=== PATIENT | female | born 1945 | race Caucasian/White ===

== ENCOUNTER 2016-10-13 09:23 | Day surgery (SDC) | payer OTHER ==
[~2016-10-13 09:23] MED LIST: PROPOFOL 200 MG/20 ML AMP IV ONE
[2016-10-13] MEDS ORDERED: ZOLP10TA3 PO (09:56)
[2016-10-13] MEDS ORDERED: BENA20TA PO (09:56)
[2016-10-13] MEDS ORDERED: PRAV20TA2 PO (09:56)
[2016-10-13] MEDS ORDERED: ALPR0.25 PO (09:56)
[2016-10-13] MEDS ORDERED: LEVO100T5 PO (09:56)
[2016-10-13] MEDS ORDERED: FERR325T8 PO (09:56)
[2016-10-13] MEDS ORDERED: ASPI81TA11 PO (09:56)
[2016-10-13] MEDS ORDERED: POVIDONE IODINE 5% (ANTISEPSIS KIT) 4 APPLICATIONS EACH NARE PRN (10:00)
[2016-10-13] MEDS ORDERED: INSULIN HUMAN REGULAR 1,000 UNITS/10 ML VIAL SQ PRN (10:00)
[2016-10-13] MEDS ORDERED: CHLORHEXIDINE GLUCONATE 2 % 1 PACK (2 CLOTHS) TOPICAL PRN (10:00)
[2016-10-13] MEDS ORDERED: METOPROLOL TARTRATE 25 MG TAB PO PRN (10:00)
[2016-10-13] MEDS ORDERED: SODIUM CHLORID 0.9% 500 ML IV PRN (10:00)
[2016-10-13] MEDS ORDERED: LACTATED RINGER'S 1000 ML IV PRN (10:00)
--- NOTE | 2016-10-13 11:54 | CF ---
cc: DIVINA GAO M.D.,MAGNOLIA WHALEN DO DATE OF PROCEDURE 10/13/2016 PROCEDURE PERFORMED Transesophageal echocardiogram INDICATIONS Severe pulmonary hypertension with progressive dyspnea on mild exertion, rule out shunts and evaluate valvular disease. PROCEDURE After obtaining informed consent and with the help of MAC anesthesia and after spraying the posterior pharyngeal wall with Cytocaine, the transesophageal echocardiogram probe was advanced without difficulty. Multiple images obtained in multiple planes revealing the following: Left ventricle size is obliterated with normal wall motion, flattening of the septum because of severe pulmonary hypertension and normal left ventricle systolic function. Ejection fraction visual estimate was around 70%. Left atrial size is normal. Right atrial size is severely dilated. Right ventricle size is moderate and severely dilated with mildly to moderately reduced RV systolic function. The tricuspid valve leaflets open adequately. The aortic valve has a mild to moderate degree of sclerosis with mild reduction in the mobility of the leaflets. It is a tricuspid out. There is mild stenosis noted. Mitral valve leaflets open adequately. There is mild mitral valve sclerosis with no stenosis. There is evidence of mild mitral regurgitation by color flow. There is mild to moderate aortic insufficiency and severe tricuspid regurgitation with calculated PA pressure around 84 mmHg taking in account a pressure of 10 mmHg. There was evidence of a shunt at atrial level by bubble flow. We saw a small PFO, however, we could not document it clearly by color flow on the recording. There were hints of at least one shunt by color flow, but again it was very difficult to document. There is a circumferential pericardial effusion that looks mild with no hemodynamic effect. There was minimal atherosclerotic disease of the aortic arch and the descending aorta. CONCLUSION 1. Obliteration of the left ventricle cavity with normal systolic function. 2. There is dilated right heart with severe pulmonary Hypertension. 3. There is evidence of a shunt at the atrial level by bubble study which was difficult to document by color flow. 4. There is mild to moderate aortic valve sclerosis with mild stenosis and mild to moderate insufficiency. 5. Mild mitral regurgitation. 6. Severe tricuspid station with severe pulmonary hypertension. 7. Small pericardial effusion with no hemodynamic effect. RECOMMENDATIONS Proceed with right and left heart catheterization and evaluate shunts ratio across the atrial level. MD NILDA Doss/FIDELIA /11:22 AM /11:30 AM
--- NOTE | 2016-10-13 16:45 | EKG ---
Date Performed: 10/13/2016 Time Performed: 09:56:00 PTAGE: 71 years EKG: Sinus rhythm . Right axis deviation rSr'(V1) - probable normal variant Inferior and ant/septal T wave changes are nonspecific Abnormal ECG NO PREVIOUS TRACING DOCTOR: Puja Vincent Interpretating Date/Time 10/13/2016 16:40:42
== END 2016-10-13 12:35 | disposition home or self-care (01) ==
LOC: HSDC 09:23 → HDIC 09:23 → HSDC 12:35
PROVIDERS: ATTEND Internal Medicine Interventional Cardiology
DX: I27.2 Other secondary pulmonary hypertension (principal); I35.2 Nonrheumatic aortic (valve) stenosis with insufficiency; R06.00 Dyspnea, unspecified; I38 Endocarditis, valve unspecified; I10 Essential (primary) hypertension; E03.9 Hypothyroidism, unspecified; D50.9 Iron deficiency anemia, unspecified; I77.9 Disorder of arteries and arterioles, unspecified; E78.2 Mixed hyperlipidemia
CPT/HCPCS: 93005; 93312; 93320; 93325